=== PATIENT | male | born 1950 | race Caucasian/White ===

== ENCOUNTER 2020-12-11 10:09 | Inpatient (IN) ==
[2020-12-11] MEDS ORDERED: ASPIRIN 325 MG TABLET PO STA (10:31)
[2020-12-11] MEDS ORDERED: MORPHINE 4 MG/1 ML VIAL IV STA (10:37)
[2020-12-11] MEDS ORDERED: ENOXAPARIN 60 MG/0.6 ML SYRINGE SUBCUT STA (10:37)
[2020-12-11] MEDS ORDERED: ONDANSETRON 4 MG/2 ML VIAL IV STA (10:37)
[2020-12-11 10:52] LABS: Basophils # 0.1 10*3/uL (0.0-0.2); Basophils % 0.5 % (0.0-0.8); Eosinophils # 0.1 10*3/uL (0.0-0.87); Eosinophils % 1.4 % (0.00-10.9); Hematocrit 43.5 VOL% (42.0-52.0); Lymphocytes # 2.5 10*3/uL (1.4-4.0); Mean Corpuscular HGB Conc 32.2 GM/DL (32-36); Mean Corpuscular Volume 99.3 FL (87-102); Mean Platelet Volume 9.8 FL (9.6-12.0); Monocytes % 11.1 % (1.7-12.7); Platelet Count 223 T/CUMM (130-400); Red Blood Count 4.38 MC/CUMM (3.8-5.5); Red Cell Distribution Width 16.2 % (9.3-17.3); White Blood Count 9.9 T/CUMM (4-12)
[2020-12-11] MEDS ORDERED: PROMETHAZINE 25 MG TABLET PO PRN (10:55)
[2020-12-11] MEDS ORDERED: POTASSIUM CHLORIDE 20 MEQ TABLET PO PRN (10:55)
[2020-12-11] MEDS ORDERED: ZALEPLON 5 MG CAPSULE PO PRN (10:55)
[2020-12-11] MEDS ORDERED: MORPHINE 4 MG/1 ML VIAL IV PRN (10:55)
[2020-12-11] MEDS ORDERED: MAGNESIUM SULF RIDER 2 GM in PREMIX 1 EACH IV PRN (10:55)
[2020-12-11] MEDS ORDERED: DOCUSATE SODIUM 100 MG CAPSULE PO PRN (10:55)
[2020-12-11] MEDS ORDERED: guaiFENesin/DM ER 600-30 MG TABLET PO PRN (10:55)
[2020-12-11] MEDS ORDERED: ALUMINUM/MAGNES/SIMETH MAX STR 30 ML UDCUP PO PRN (10:55)
[2020-12-11] MEDS ORDERED: MAGNESIUM SULF RIDER 4 GM in PREMIX 1 EACH IV PRN (10:55)
[2020-12-11] MEDS ORDERED: ALBUTEROL/IPRATROPIUM 3 ML NEB RESP TX PRN (10:55)
[2020-12-11] MEDS ORDERED: ONDANSETRON 4 MG/2 ML VIAL IV PRN (10:55)
[2020-12-11] MEDS ORDERED: diphenhydrAMINE CAP 25 MG CAPSULE PO PRN (10:55)
[2020-12-11] MEDS ORDERED: hydrALAZINE 20 MG/1 ML VIAL IV PRN (10:55)
[2020-12-11 11:01] LABS: PT Patient Result 10.7 SECS (9.8-11.9); Partial Thromboplastin Time 31.9 SECS (23.9-33.8)
[2020-12-11 11:09] LABS: Bilirubin,Total 0.6 MG/DL (0.2-1.0); Calcium 8.6 MG/DL (8.5-10.1); Osmolality,Calculated 269.8 MOS/KG (273-304); Total Protein 6.5 G/DL (6.4-8.3)
[2020-12-11] MEDS ORDERED: NITROGLYCERIN SL 0.4 MG TABLET SL PRN (12:29)
[2020-12-11] MEDS: ALBUTEROL/IPRATROPIUM 3 ML NEB RESP TX SCH (18:34)
[2020-12-11] MEDS: ISOSORBIDE MONONITRATE 30 MG TABLET PO SCH (20:27)
[2020-12-11] MEDS ORDERED: ENOXAPARIN 60 MG/0.6 ML SYRINGE SUBCUT SCH (23:00)
[2020-12-12] MEDS: ALBUTEROL/IPRATROPIUM 3 ML NEB RESP TX SCH ×4 (00:27→19:46)
[2020-12-12] MEDS: ACETAMINOPHEN 325 MG TABLET PO PRN ×2 (03:49→22:33)
[2020-12-12 05:38] LABS: Basophils # 0.1 10*3/uL (0.0-0.2); Basophils % 0.8 % (0.0-0.8); Eosinophils # 0.1 10*3/uL (0.0-0.87); Eosinophils % 1.3 % (0.00-10.9); Hematocrit 36.1 VOL% (42.0-52.0); Hemoglobin 12.1 GM/DL (14.0-18.0); Immature Granulocytes % 1.5 %; Immature Granulocytes Absolute 0.12 #; Lymphocytes # 2.3 10*3/uL (1.4-4.0); Lymphocytes % 28.4 % (21.2-54.2); Mean Corpuscular HGB Conc 33.5 GM/DL (32-36); Mean Corpuscular Volume 95.8 FL (87-102); Mean Platelet Volume 9.8 FL (9.6-12.0); Monocytes % 9.3 % (1.7-12.7); Neutrophils % 58.7 % (38.7-73.9); Platelet Count 191 T/CUMM (130-400); Red Blood Count 3.77 MC/CUMM (3.8-5.5); Red Cell Distribution Width 15.9 % (9.3-17.3); White Blood Count 7.9 T/CUMM (4-12)
[2020-12-12 06:14] LABS: Blood Urea Nitrogen 12 MG/DL (7-18); Calcium 8.4 MG/DL (8.5-10.1); Carbon Dioxide 25 MMOL/L (21-32); Glucose 86 MG/DL (74-106); HDL Cholesterol 33 MG/DL (40-60); Osmolality,Calculated 271.8 MOS/KG (273-304); Potassium 3.4 MMOL/L (3.5-5.1); Risk Ratio 4.67; Sodium 137 MMOL/L (136-145); Triglycerides 72 MG/DL (2-150); VLDL CHOLESTEROL 14.4 MG/DL
[2020-12-12 06:21] LABS: Estimated Glom Filtration Rate 47 ML/MIN; Troponin I 0.278 NG/ML (0.00-0.045)
[2020-12-12] MEDS ORDERED: LIDOCAINE 1% 20 ML VIAL ONE (06:52)
[2020-12-12] MEDS ORDERED: POTASSIUM CHLORIDE 20 MEQ TABLET PO ONE (07:03)
[2020-12-12] MEDS ORDERED: MAGNESIUM SULF RIDER 2 GM in PREMIX 1 EACH IV ONE (07:03)
[2020-12-12] MEDS: SIMVASTATIN 20 MG TABLET PO SCH (07:20)
[2020-12-12] MEDS: TAMSULOSIN 0.4 MG CAPSULE PO SCH (07:20)
[2020-12-12] MEDS: CLOPIDOGREL 75 MG TABLET PO SCH (07:20)
[2020-12-12] MEDS: PANTOPRAZOLE 40 MG TABLET PO SCH (07:20)
[2020-12-12] MEDS: PARoxetine 20 MG TABLET PO SCH (07:20)
[2020-12-12] MEDS: METOPROLOL TARTRATE 25 MG TABLET PO SCH (07:20)
[2020-12-12] MEDS: ASPIRIN EC 81 MG TABLET PO SCH (07:25)
[2020-12-12] MEDS ORDERED: diphenhydrAMINE CAP 25 MG CAPSULE PO ONE (07:30)
[2020-12-12] MEDS ORDERED: DIAZEPAM 5 MG TABLET PO ONE (07:30)
[2020-12-12] MEDS ORDERED: MAGNESIUM SULF RIDER 2 GM in PREMIX 1 EACH IV PRN (07:30)
[2020-12-12] MEDS ORDERED: POTASSIUM CHLORIDE RIDER 10 MEQ in PREMIX 1 EACH IV PRN (07:30)
[2020-12-12] MEDS ORDERED: ASPIRIN 325 MG TABLET PO ONE (07:30)
[2020-12-12] MEDS ORDERED: fentaNYL 100 MCG/2 ML VIAL ONE (07:47)
[2020-12-12] MEDS ORDERED: MIDAZOLAM 2 MG/2 ML VIAL ONE (07:47)
[2020-12-12] MEDS: SODIUM CHLORIDE 0.9% 1,000 ML IV SCH ×3 (08:19→23:57)
[2020-12-12] MEDS: ISOSORBIDE MONONITRATE 30 MG TABLET PO SCH (20:19)
[2020-12-13] MEDS: ALBUTEROL/IPRATROPIUM 3 ML NEB RESP TX SCH ×5 (02:02→19:25)
[2020-12-13 06:16] LABS: Calcium 8.5 MG/DL (8.5-10.1); Osmolality,Calculated 276.5 MOS/KG (273-304); Potassium 3.6 MMOL/L (3.5-5.1)
[2020-12-13] MEDS: CLOPIDOGREL 75 MG TABLET PO SCH (08:28)
[2020-12-13] MEDS: PARoxetine 20 MG TABLET PO SCH (08:29)
[2020-12-13] MEDS: SIMVASTATIN 20 MG TABLET PO SCH (08:29)
[2020-12-13] MEDS: ASPIRIN EC 81 MG TABLET PO SCH (08:29)
[2020-12-13] MEDS: METOPROLOL TARTRATE 25 MG TABLET PO SCH (08:29)
[2020-12-13] MEDS: PANTOPRAZOLE 40 MG TABLET PO SCH (08:29)
[2020-12-13] MEDS: TAMSULOSIN 0.4 MG CAPSULE PO SCH (08:29)
[2020-12-13] MEDS ORDERED: ceFAZolin 1,000 MG VIAL IRRIG ONE (10:24)
[2020-12-13] MEDS ORDERED: DIAZEPAM 5 MG TABLET PO ONE (10:24)
[2020-12-13] MEDS ORDERED: ceFAZolin 1,000 MG in SYRINGE 1 EACH IV ONE (10:24)
[2020-12-13] MEDS ORDERED: diphenhydrAMINE CAP 25 MG CAPSULE PO ONE (10:24)
[2020-12-13] MEDS ORDERED: LIDOCAINE 1% 20 ML VIAL ONE (13:41)
[2020-12-13] MEDS ORDERED: MIDAZOLAM 2 MG/2 ML VIAL ONE (13:41)
[2020-12-13] MEDS ORDERED: fentaNYL 100 MCG/2 ML VIAL ONE (13:41)
[2020-12-13] MEDS ORDERED: ceFAZolin 1,000 MG VIAL ONE ×2 (13:45)
[2020-12-13] MEDS ORDERED: TISSUE ADHESIVE 1 EACH APPLICATOR TOP ONE (15:32)
[2020-12-13] MEDS: ISOSORBIDE MONONITRATE 30 MG TABLET PO SCH (20:33)
[2020-12-14] MEDS: ALBUTEROL/IPRATROPIUM 3 ML NEB RESP TX SCH ×2 (00:03→07:10)
[2020-12-14] MEDS: ACETAMINOPHEN 325 MG TABLET PO PRN (00:39)
[2020-12-14 06:00] LABS: Basophils % 0.3 % (0.0-0.8); Eosinophils # 0.1 10*3/uL (0.0-0.87); Eosinophils % 1.1 % (0.00-10.9); Hematocrit 35.7 VOL% (42.0-52.0); Hemoglobin 11.9 GM/DL (14.0-18.0); Immature Granulocytes % 0.8 %; Immature Granulocytes Absolute 0.08 #; Lymphocytes # 2.4 10*3/uL (1.4-4.0); Lymphocytes % 23.7 % (21.2-54.2); Mean Corpuscular HGB Conc 33.3 GM/DL (32-36); Mean Corpuscular Volume 96.2 FL (87-102); Mean Platelet Volume 10.2 FL (9.6-12.0); Monocytes % 9.4 % (1.7-12.7); Neutrophils % 64.7 % (38.7-73.9); Platelet Count 181 T/CUMM (130-400); Red Blood Count 3.71 MC/CUMM (3.8-5.5); Red Cell Distribution Width 16.1 % (9.3-17.3); White Blood Count 10.3 T/CUMM (4-12)
[2020-12-14 06:20] LABS: Calcium 8.6 MG/DL (8.5-10.1); Potassium 3.5 MMOL/L (3.5-5.1)
[2020-12-14] MEDS: SODIUM CHLORIDE 0.9% 1,000 ML IV SCH (08:22)
[2020-12-14] MEDS: CLOPIDOGREL 75 MG TABLET PO SCH (08:28)
[2020-12-14] MEDS: ASPIRIN EC 81 MG TABLET PO SCH (08:28)
[2020-12-14] MEDS: PARoxetine 20 MG TABLET PO SCH (08:28)
[2020-12-14] MEDS: TAMSULOSIN 0.4 MG CAPSULE PO SCH (08:28)
[2020-12-14] MEDS: SIMVASTATIN 20 MG TABLET PO SCH (08:29)
[2020-12-14] MEDS: PANTOPRAZOLE 40 MG TABLET PO SCH (08:29)
[2020-12-14 08:32] VITALS: BP 135/75
== END 2020-12-14 11:31 | disposition home or self-care (01) | DRG 243 ==
LOC: N.EDINP 10:09 → N.ED 10:09 → N.TELEN 12:24
PROVIDERS: ADMIT Internal Medicine Cardiovascular Disease; ATTEND Internal Medicine Cardiovascular Disease